=== PATIENT | female | born 1955 | race Caucasian/White ===

== ENCOUNTER → 2022-09-27 | Outpatient (CLI) | payer MEDICARE, OTHER ==
[~2022-09-27] MED LIST: ASPI325; BUPR75 PO; CLON.5 PO; EZET10-10 PO; FLUO10 PO; FLUO20; FURO20; GABA100 PO; HYDACE5 PO; LISHYD2025 PO; LISI5 PO; LOSHYD; POTCHL10ER PO; POTCHL20ER PO; QUET25 PO; ROSU5 PO; VENL75ER
== END | disposition home or self-care (01) ==
LOC: PLD 12:00 → LAB 12:00 → LAB SHORT 12:00
DX: D18.01 Hemangioma of skin and subcutaneous tissue (principal); M79.671 Pain in right foot; M60.271 Foreign body granuloma of soft tissue, not elsewhere classified, right ankle and foot
CPT/HCPCS: 88305

== ENCOUNTER → 2024-11-19 | Outpatient (CLI) | payer MEDICARE | END | disposition home or self-care (01) | LOC: LAB 16:13 → LAB SHORT 16:13 | DX: N39.0 Urinary tract infection, site not specified (principal) | CPT/HCPCS: 87077; 87086; 87186 ==

== ENCOUNTER 2025-06-14 14:37 | Emergency (ER) | payer MEDICARE ==
[~2025-06-14] VITALS: Ht 147.3 cm; Wt 72.6 kg
[2025-06-14 15:19] LABS: BASOPHILS ABSOLUTE AUTO 0.00 K/mm3 (0.00-0.23); BASOPHILS PERCENT AUTO 0 % (0-2); EOSINOPHILS ABSOLUTE AUTO 0.06 K/mm3 (0.00-0.68); EOSINOPHILS PERCENT AUTO 1 % (0-6); Hematocrit 41.0 % (33.0-51.0); Hemoglobin 13.4 g/dL (11.5-16.0); IMMATURE GRAN ABSOLUTE AUTO 0.02 K/mm3 (0.00-0.10); IMMATURE GRAN PERCENT AUTO 0 % (0-1); LYMPHOCYTES ABSOLUTE AUTO 1.24 K/mm3 (0.84-5.20); LYMPHOCYTES PERCENT AUTO 20 % (21-46); MONOCYTES ABSOLUTE AUTO 0.45 K/mm3 (0.16-1.47); MONOCYTES PERCENT AUTO 7 % (4-13); Mean Corpuscular HGB Conc 32.7 g/dL (31.5-36.5); Mean Corpuscular Volume 89 fL (80-100); NEUTROPHILS ABSOLUTE AUTO 4.60 K/mm3 (1.96-9.15); NEUTROPHILS PERCENT AUTO 72 % (41-73); NRBC ABSOLUTE 0.00 K/mm3 (0.00-0.02); NRBC Auto 0.0 /100 WBC (0.0-0.2); Platelet Count 186 K/mm3 (150-400); RDW Coefficient Variation 14.2 % (11.7-14.2); RDW Standard Deviation 46.4 fL (35.1-46.3)
[2025-06-14 15:38] LABS: Alanine Aminotransfer (ALT/SGP 38.0 U/L (12-78); Albumin, Blood 3.7 g/dL (3.4-5.0); Albumin/Globulin Ratio 1.0 (0.8-1.8); Anion Gap 10.0 mmol/L (3-11); Aspartate Aminotrans (AST/SGOT 25.0 U/L (12-37); Bilirubin, Total 0.3 mg/dL (0.1-1.0); Blood Urea Nitrogen 20.0 mg/dL (8-24); CO2, Blood 23.0 mmol/L (21-32); Calcium, Blood 9.2 mg/dL (8.5-10.1); Chloride, Blood 108.0 mmol/L (98-108); Creatinine, Blood 1.11 mg/dL (0.40-1.00); Globulin, Blood 3.6 g/dL (2.2-4.0); Glucose, Blood 138.0 mg/dL (70-99); Potassium, Blood 3.1 mmol/L (3.5-5.5); Sodium, Blood 138.0 mmol/L (136-145); Total Protein, Blood 7.3 g/dL (6.4-8.2)
[2025-06-14 17:01] VITALS: BP 116/72
[2025-06-14] MEDS ORDERED: POTA10T PO (17:20)
== END 2025-06-14 17:54 | disposition home or self-care (01) ==
LOC: ER 14:37
PROVIDERS: Emergency Medicine
DX: E87.6 Hypokalemia (principal); I10 Essential (primary) hypertension; E78.5 Hyperlipidemia, unspecified; Z90.710 Acquired absence of both cervix and uterus; Z79.899 Other long term (current) drug therapy
CPT/HCPCS: 80053; 83690; 85025; 93005; 93010; 99284-25; A9270